=== PATIENT | female | born 1965 ===

== ENCOUNTER → 2017-04-27 | Outpatient (CLI) | payer MEDICARE, MEDICAID, SELFPAY | PROVIDERS: PCP Physician Assistant; Visit Provider Physician Assistant | DX: M54.12 Radiculopathy, cervical region (principal); V89.2XXS Person injured in unspecified motor-vehicle accident, traffic, sequela | CPT/HCPCS: 72141 ==

== ENCOUNTER → 2018-03-26 11:24 | Outpatient (CLI) | payer MEDICARE, MEDICAID, SELFPAY ==
--- NOTE | 2018-03-26 | DI.MG.S_ITS ---
BILATERAL DIGITAL SCREENING MAMMOGRAM 3D/2D WITH CAD: 03/26/2018 CLINICAL: Routine screening. Comparison is made to exams dated: 12/01/2016 mammogram, 05/09/2013 mammogram, and 05/02/2013 mammogram - [facility]. The tissue of both breasts is heterogeneously dense. This may lower the sensitivity of mammography. Current study was also evaluated with a Computer Aided Detection (CAD) system. No significant masses, calcifications, or other findings are seen in either breast. There has been no significant interval change. IMPRESSION: NEGATIVE There is no mammographic evidence of malignancy. A 1 year screening mammogram is recommended. This exam was interpreted at Station ID: [id number]. NOTE: For mammograms, a report in lay terms will be sent to the patient. Approximately 15% of breast malignancies will not be visualized mammographically. In the management of a palpable breast mass, a negative mammogram must not discourage biopsy of a clinically suspicious lesion. Electronically Signed By: Joyce cm/twan:03/26/2018 12:26:16 copy to: Mickie Babin letter sent: Normal Exam ACR BI-RADS Category 1: Negative [id number]
== END ==
PROVIDERS: PCP Physician Assistant; Visit Provider Physician Assistant
DX: Z12.31 Encounter for screening mammogram for malignant neoplasm of breast (principal)
CPT/HCPCS: 77063; 77067

== ENCOUNTER 2018-06-23 13:54 | Emergency (ER) | payer MEDICARE, MEDICAID, SELFPAY ==
[2018-06-23 13:57] VITALS: BP 155/90; PULSE 107; RESP 22; TEMP 36.4; O2SAT 100; BMI 22.8
[2018-06-23] MEDS: ONDANSETRON 4 MG/2 ML INJ IV (14:08)
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
--- NOTE | 2018-06-23 14:31 | DI.CT.S_ITS ---
PROCEDURE: CT ABDOMEN PELVIS W CON INDICATIONS: Nausea vomiting and with abdominal pain TECHNIQUE: After the administration of intravenous contrast, 5 mm thick sections acquired from the diaphragm to the symphysis. 5 mm coronal and sagittal reformats were acquired. For radiation dose reduction, the following was used: automated exposure control, adjustment of mA and/or kV according to patient size. COMPARISON: [facility], , PELVIC COMPLETE, 10/04/2017, 9:06. FINDINGS: Image quality: Excellent. ABDOMEN: Lung bases: Lung bases are clear. 7 mm subpleural nodule noted in the right lung base. Heart size is normal. Solid organs: Liver is normal in size and enhancement. Diffuse fatty infiltration of the liver. Gallbladder is within normal limits. Biliary system is non dilated. Pancreas enhances normally. Spleen is normal in size and enhancement. 6 mm cyst noted in the spleen. No adrenal nodules. Kidneys demonstrate normal size and enhancement, without hydronephrosis. The appendix is normal. Peritoneum and bowel: Bowel loops demonstrate normal wall thickness and caliber. No free fluid or air. Nodes and vessels: No retroperitoneal or mesenteric adenopathy by size criteria. Aorta and inferior vena cava are normal in size. Miscellaneous: No ventral hernias. PELVIS: Genitourinary: Bladder wall thickness is normal. 2.8 cm left adnexal cyst. 2.3 cm posterior right uterine fibroid. Prominence of the lower uterine segment and cervix with 2 cystic lesions measuring 2.4 2.3 cm in maximum diameter. Findings be related to large nabothian cysts versus necrotic neoplasm. Miscellaneous: No inguinal hernias or adenopathy. Bones: No suspicious bony lesions. No vertebral body compression fractures. Spine degenerative disease and facet arthropathy noted. Spine degenerative disease and facet arthropathy noted. IMPRESSION: 1. No acute disease process. 2. Hepatic steatosis. 3. The appendix is normal. 4. No dilated loops of bowel. 5. No free fluid or air. 6. Prominence of the lower uterine segment/cervix with associated cystic lesions. Findings may be related to large nabothian cysts versus carcinoma. Recommend correlation with pelvic exam. 7. Uterine fibroid not significantly changed compared to prior pelvic sonogram. 8. 2.8 cm left adnexal cyst. Dictated by: Mary Monreal MD, PhD on 06/23/2018 at 16:20 Approved by: Mary Monreal MD, PhD on 06/23/2018 at 16:28
[2018-06-23] MEDS: SODIUM CHLORIDE 0.9% 1,000 ML 1000 ML IV (14:40)
[2018-06-23] MEDS: HYDROMORPHONE 1 MG INJ IV (14:41)
[2018-06-23 14:53] LABS: Add Manual Diff / Slide Review NO; Eosinophils Percent Auto 0.2 % (2-4); Hematocrit 44.3 % (36-46); Hemoglobin 14.7 g/dL (12.0-16.0); Lymphocytes Percent Auto 18.8 % (25-40); Mean Corpuscular HGB Conc 33.3 % (30-36); Mean Corpuscular Hemoglobin 28.1 PG (26-34); Mean Corpuscular Volume 84.5 fL (80-100); Monocytes Percent Auto 5.6 % (3-14); Neutrophils Absolute Auto 8500 /uL (3000-5900); Neutrophils Percent Auto 74.4 % (50-75); Platelet Count 302 X10^3/uL (150-400); Red Blood Cell Count 5.24 X10^6/uL (4.0-5.2); Red Cell Distribution Width 13.4 % (11.6-14.8); White Blood Cell Count 11.4 X10^3/uL (4.5-11.0)
[2018-06-23 15:02] LABS: INR 1.1 (0.9-1.3); Prothrombin Time 12.1 SECONDS (10.1-12.7)
[2018-06-23 15:05] LABS: PTT Partial Thromboplastin Tim 28 SECONDS (26.4-36.2)
[2018-06-23 15:06] LABS: Alanine Aminotransferase 24 IU/L (9-52); Albumin 4.9 g/dL (3.5-5.0); Albumin Globulin Ratio 1.4 (1.0-2.8); Alkaline Phosphatase 67 U/L (38-126); Aspartate Aminotransferase 21 IU/L (14-36); BUN Creatinine Ratio 18.6 (6-22); Blood Urea Nitrogen 13 mg/dL (7-17); Calcium 9.5 mg/dL (8.4-10.2); Carbon Dioxide 22 mmol/L (22-32); Chloride 99 mmol/L (98-107); Estimated Glomerular Filt Rate > 60.0 mL/min (>60); Globulin 3.6 g/dL (1.7-4.1); Glucose 136 mg/dL (70-100); HEMOLYSIS < 15 (0-50); Lipase 108 U/L (23-300); Potassium 3.5 mmol/L (3.4-5.1); Sodium 138 mmol/L (137-145); Total Protein 8.5 g/dL (6.3-8.2)
[2018-06-23 16:24] VITALS: BP 134/73; PULSE 85; RESP 14; O2SAT 99
[2018-06-23 17:49] VITALS: BP 133/73; PULSE 99; RESP 16; O2SAT 100
[2018-06-23] MEDS: ONDANSETRON 4 MG ODT PREPACK 1 BOTTLE MISC (17:51)
== END 2018-06-23 17:57 | disposition home or self-care (01) ==
PROVIDERS: Emergency Provider Nurse Practitioner Family; Family Provider Physician Assistant; PCP Physician Assistant
DX: R11.2 Nausea with vomiting, unspecified (principal)
CPT/HCPCS: 36415; 74177; 80053; 81003; 83690; 85025; 85610; 85730; 96361; 96374; 96375; 99283; 99285; J1170; J2405; Q9967

== ENCOUNTER 2019-02-27 10:30 | Outpatient (RCR) | payer MEDICARE, MEDICAID, SELFPAY ==
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
== END 2019-02-28 09:05 | disposition home or self-care (01) ==
LOC: PHYS 10:30
PROVIDERS: Family Provider Internal Medicine; PCP Internal Medicine; Visit Provider Internal Medicine
DX: M25.511 Pain in right shoulder (principal); G56.21 Lesion of ulnar nerve, right upper limb; R53.1 Weakness; M25.611 Stiffness of right shoulder, not elsewhere classified; V89.2XXD Person injured in unspecified motor-vehicle accident, traffic, subsequent encounter
CPT/HCPCS: 97035; 97110; 97140

== ENCOUNTER → 2019-03-03 14:14 | Outpatient (CLI) | payer MEDICARE, MEDICAID, SELFPAY ==
[2019-03-06 19:55] LABS: ANA Pattern Speckled; ANA Screen, IFA Positive (Negative); ANA Titer 1:40 titer (<1:40)
== END ==
PROVIDERS: Family Provider Internal Medicine; PCP Internal Medicine; Visit Provider Physician Assistant
DX: R21 Rash and other nonspecific skin eruption (principal)
CPT/HCPCS: 36415; 86038

== ENCOUNTER 2019-06-24 10:57 | Emergency (ER) | payer MEDICARE, MEDICAID, OTHER, SELFPAY ==
[2019-06-24 11:06] VITALS: BP 149/81; PULSE 90; RESP 16; TEMP 36.5; O2SAT 100
--- NOTE | 2019-06-24 11:22 | ED.ABDPAIN ---
HPI - Abdominal Pain <JESSICA Alberts - Last Filed: 06/25/19 02:40> General Chief Complaint: Abdominal Pain Stated Complaint: allergic to cats Time Seen by Provider: 06/24/19 11:02 Source: patient Mode of arrival: ambulatory Limitations: no limitations History of Present Illness HPI narrative: This is a 54-year-old female, nonsmoker, who presents with a friend with chief complain of periumbilical abdominal pain for 4 days with nausea and vomiting for multiple times. She denies fever but endorses chills, feeling sweaty and weak. Patient reports pain increases with walking, movement, smelling food and pain improves with pudding steady pressure on to her abdomen. She was referred by her primary care physician, Dr. Valderrama for an evaluation. The patient states she has been taking ibuprofen 400 mg b.i.d. and gabapentin 300 mg b.i.d. for her chronic back pain. She has states has not been taking ibuprofen with food. She also mentions that she has been having allergy reaction such as swelling to eyes, runny nose, itchy eyes and has been taking Zyrtec with [id number] Pet allergy medication. She is known to have allergy to cat and she was visiting her daughter who is expecting a child and has a cat at home. The allergy symptoms has been controlled with the medications at this time and she denies chest pain, breathing difficulties, dizziness at this time. Patient denies urinary symptoms such as dysuria, frequency, hematuria, urgency. Her last bowel movement was couple of days ago and denies melena, blood in stool. She denies blood in emesis and it appears to be white and foamy. She denies history of gastric ulcer. LMP end of last month. Related Data Previous Rx's Medication Instructions Recorded cimetidine 400 mg PO BID #60 tab 03/13/17 montelukast [Singulair] 10 mg PO QDAY #30 tab 03/13/17 prednisone 10 mg PO PRN PRN #30 tab 03/13/17 hydrocodone-acetaminophen 1 tab PO Q6HP PRN #20 tab 05/01/17 norethindrone acetate 5 mg PO QDAY #30 tab 09/19/17 betamethasone dipropionate 0.05 % 1 applictn TOPICAL TID #45 gram 04/30/18 topical ointment ibuprofen 800 mg tablet 800 mg PO TIDP PRN #90 tab 04/30/18 ondansetron 4 mg PO TID PRN #10 tab 06/23/18 gabapentin 300 mg capsule 300 mg PO HS #30 cap 09/04/18 omeprazole 20 mg PO DAILY 14 Days cap 06/24/19 ondansetron 4 mg PO TID-QID PRN #10 tab 06/24/19 Allergies Allergy/AdvReac Type Severity Reaction Status Date / Time diphenhydramine Allergy Unknown Verified 06/23/18 14:00 [From BENADRYL] hydrocortisone Allergy Unknown Verified 06/23/18 14:00 [HYDROCORTISONE] Sulfa (Sulfonamide Allergy Unknown Verified 06/23/18 14:00 Antibiotics) [SULFA (SULFONAMIDE ANTIBIOTICS)] CALAMINE LOTION Allergy Mild Uncoded 01/30/18 11:51 Review of Systems <JESSICA Alberts - Last Filed: 06/25/19 02:40> Review of Systems Narrative: General: See HPI HEENT: Denies sinus pain, ear pain, sore throat, difficulty swallowing, dizziness. Respiratory: Denies dyspnea, cough, wheezing, hemoptysis, sputum. Cardiovascular: Denies chest pain, palpitations, orthopnea, edema. Gastrointestinal: See HPI : Denies dysuria, frequency, incontinence, hematuria, urinary retention. Musculoskeletal: Denies weakness, joint pain or bony pain. Skin: Denies rash, skin lesions, or other. Neurologic: Denies weakness, headache, numbness, change in speech, confusion, seizures, incoordination. Psychiatric: No concerning psychosocial issues. 12-point review of systems is negative except for those stated above. 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 Head: Normal cephalic, atraumatic. No scalp or temporal tenderness, palpable mass or rash. EYES: Pupils are equal, round, and reactive to light and accommodation. Extraocular muscles are intact bilaterally. There is no subconjunctival hemorrhage, exudate and sclera non-icteric. ENT: Bilateral auditory canals and tympanic membranes clear. Hearing grossly intact. Nose without bleeding, purulent discharge or deviation. Mucous membrane dry, no mucosal lesion. Throat without erythema, tonsillar hypertrophy or exudate. Uvula in midline, airway patent. Neck: Trachea in midline. No JVD, non-tender without lymphadenopathy. No masses or thyroid megaly. Supple, non-tender and no meningeal signs. CARDIAC: Normal regular rate and rhythm without murmurs, gallops, or rubs. No chest wall tenderness. No peripheral edema, cyanosis or pallor. Capillary refill is less than 2 seconds. RESPIRATORY: Lungs are cleat to auscultate bilaterally. No cough, wheezes, rales, or rhonchi. No stridor, respiratory distress, increase work of breathing, or accessary muscle used. ABD: Abdomen the diffused tenderness to palpate, guarding. Abdomen soft and non-distended. Bowel sounds are normal in all 4 quadrants. There is no palpable masses or organomegaly. EXT: Full painless ROM of all extremities with no loss of sensation, strength, effusion or edema. SKIN: Warm, dry, normal color for patient. No erythema, lesions or rash over visible areas. BACK: Nontender without deformity or crepitance. No flank tenderness. NEUROLOGICAL: Alert and oriented to place, time and person. Sensation and motor function intact bilaterally. No facial droops, dysphasia. PSYCHIATRIC: Good judgement and reason, without hallucinations, abnormal affect or abnormal behaviors during the examination. Initial Vital Signs Initial Vital Signs: Vital Signs Temperature 97.7 F 06/24/19 11:06 Pulse Rate 90 06/24/19 11:06 Respiratory Rate 16 06/24/19 11:06 Blood Pressure 149/81 H 06/24/19 11:06 Pulse Oximetry 100 06/24/19 11:06 <Toby Park DO - Last Filed: 07/02/19 18:48> Initial Vital Signs Initial Vital Signs: Vital Signs Temperature 97.7 F 06/24/19 11:06 Pulse Rate 90 06/24/19 11:06 Respiratory Rate 16 06/24/19 11:06 Blood Pressure 149/81 H 06/24/19 11:06 Pulse Oximetry 100 06/24/19 11:06 Scores <JESSICA Alberts - Last Filed: 06/25/19 02:40> GCS Carmen coma scale eye opening: Spontaneous Carmen coma scale verbal response: Orientated [place] coma scale motor response: Obey commands [place] coma scale total score: 15 Course <JESSICA Alberts - Last Filed: 06/25/19 02:40> Orders Ordered: Discontinued Medications Sodium Chloride (Normal Saline 0.9%) 1,000 mls @ 999 mls/hr IV BOLUS ONE Stop: 06/24/19 12:21 Last Infusion: 06/24/19 14:10 Dose: 0 mls/hr Documented by: Infusion: 06/24/19 13:38 Dose: 999 mls/hr Documented by: Infusion: 06/24/19 12:45 Dose: 0 mls/hr Documented by: Admin: 06/24/19 11:49 Dose: 999 mls/hr Documented by: EULALIO Morphine Sulfate (Morphine) 4 mg IV NOW ONE Stop: 06/24/19 13:43 Last Admin: 06/24/19 14:06 Dose: 4 mg Documented by: EULALIO Ondansetron HCl (Zofran) 4 mg IV NOW ONE Stop: 06/24/19 11:22 Last Admin: 06/24/19 11:52 Dose: 4 mg Documented by: EULALIO Ondansetron HCl (Zofran) 4 mg IV NOW ONE Stop: 06/24/19 14:11 Last Admin: 06/24/19 14:12 Dose: 4 mg Documented by: EULALIO Pantoprazole Sodium (Protonix) 40 mg IV NOW ONE Stop: 06/24/19 11:22 Last Admin: 06/24/19 11:51 Dose: 40 mg Documented by: EULALIO Vital Signs Vital signs: Vital Signs - 8 hr 06/24/19 11:06 Temperature 97.7 F Pulse Rate 90 Respiratory Rate 16 Blood Pressure 149/81 H Pulse Oximetry 100 <Toby Park DO - Last Filed: 07/02/19 18:48> Orders Ordered: Discontinued Medications Sodium Chloride (Normal Saline 0.9%) 1,000 mls @ 999 mls/hr IV BOLUS ONE Stop: 06/24/19 12:21 Last Infusion: 06/24/19 14:10 Dose: 0 mls/hr Documented by: Infusion: 06/24/19 13:38 Dose: 999 mls/hr Documented by: Infusion: 06/24/19 12:45 Dose: 0 mls/hr Documented by: Admin: 06/24/19 11:49 Dose: 999 mls/hr Documented by: EULALIO Morphine Sulfate (Morphine) 4 mg IV NOW ONE Stop: 06/24/19 13:43 Last Admin: 06/24/19 14:06 Dose: 4 mg Documented by: EULALIO Ondansetron HCl (Zofran) 4 mg IV NOW ONE Stop: 06/24/19 11:22 Last Admin: 06/24/19 11:52 Dose: 4 mg Documented by: EULALIO Ondansetron HCl (Zofran) 4 mg IV NOW ONE Stop: 06/24/19 14:11 Last Admin: 06/24/19 14:12 Dose: 4 mg Documented by: EULALIO Pantoprazole Sodium (Protonix) 40 mg IV NOW ONE Stop: 06/24/19 11:22 Last Admin: 06/24/19 11:51 Dose: 40 mg Documented by: EULALIO Vital Signs Vital signs: Vital Signs - 8 hr 06/24/19 11:06 Temperature 97.7 F Pulse Rate 90 Respiratory Rate 16 Blood Pressure 149/81 H Pulse Oximetry 100 MDM - Abdominal Pain <JESSICA Alberts - Last Filed: 06/25/19 02:40> Differential Diagnosis Differential diagnosis: Likely abdominal pain, acute appendicitis, pancreatitis and other (gastritis, cholecystitis) Medical Records Attestation: I reviewed the patient's medical records. Lab Data Attestation: I reviewed the patient's lab results. Result diagrams: 06/24/19 11:50 06/24/19 11:50 Labs: Lab Results 06/24/19 06/24/19 Range/Units 11:50 11:50 WBC 10.6 (4.5-11.0) X10^3/uL RBC 5.34 H (4.0-5.2) X10^6/uL Hgb 15.0 (12.0-16.0) g/dL Hct 44.6 (36-46) % MCV 83.4 (80-100) fL MCH 28.0 (26-34) PG MCHC 33.6 (30-36) % RDW 13.7 (11.6-14.8) % Plt Count 316 (150-400) X10^3/uL Neut % (Auto) 77.1 H (50-75) % Lymph % (Auto) 15.7 L (25-40) % [place] % (Auto) 6.0 (3-14) % Eos % (Auto) 0.4 L (2-4) % Baso % (Auto) 0.8 (0-2) % Neut # (Auto) 8200 H (8504-6451) /uL Lymph # (Auto) 1700 (0280-9548) /uL [place] # (Auto) 600 (0-900) /uL Eos # (Auto) 0 (0-450) /uL Baso # (Auto) 100 (0-100) /uL Sodium 135 L (137-145) mmol/L Potassium 3.5 (3.4-5.1) mmol/L Chloride 96 L (98-107) mmol/L Carbon Dioxide 23 (22-32) mmol/L BUN 17 (7-17) mg/dL Creatinine 0.70 (0.52-1.04) mg/dL Estimated GFR > 60.0 (>60) mL/min BUN/Creatinine Ratio 24.3 H (6-22) Glucose 126 H (70-100) mg/dL Calcium 10.0 (8.4-10.2) mg/dL Total Bilirubin 1.0 (0.2-1.3) mg/dL AST 27 (14-36) IU/L ALT 22 (9-52) IU/L Alkaline Phosphatase 76 (38-126) U/L Total Protein 9.0 H (6.3-8.2) g/dL Albumin 4.9 (3.5-5.0) g/dL Globulin 4.1 (1.7-4.1) g/dL Albumin/Globulin Ratio 1.2 (1.0-2.8) Lipase 46 (23-300) U/L Point of care testing: Urine Dip Bedside Urine Glucose Negative Bedside Urine Bilirubin - Negative Bedside Urine Ketone +++ 80 Urine Specific [place] 1.010 Bedside Urine Occult Blood - Negative Bedside Urine pH 8.0 Bedside Urine Protein +/- 15 Bedside Urine Urobilinogen - Negative Bedside Urine Nitrite - Negative Bedside Urine Leukocytes - Negative Esterase Imaging Data CT scan - abdomen: Radiologist's impression: [address] [address] [address] Scan Report Signed Patient: Amy Campos JMR#: [id number] : 1965Acct:[id number] Age/Sex: 54 / FDate of Service: 06/24/19 Loc: ED Accession Number: [id number] Procedure: CT abdomen pelvis w con Ordering Provider: Quincy Allison PROCEDURE: CT ABDOMEN PELVIS W CON INDICATIONS: periumbelical pain with nausea and vomiting TECHNIQUE: After the administration of intravenous contrast, 5 mm thick sections acquired from the diaphragm to the symphysis. 5 mm coronal and sagittal reformats were acquired. For radiation dose reduction, the following was used: automated exposure control, adjustment of mA and/or kV according to patient size. COMPARISON: [facility], US, US PELVIC COMPLETE WITH TRANSVAGINAL, 08/26/2018, 14:14. [facility], CT, CT ABDOMEN PELVIS W CON, 06/23/2018, 15:39. FINDINGS: Image quality: Excellent. ABDOMEN: Lung bases: Lung bases are clear. Heart size is normal. Solid organs: Liver is normal in size and enhancement. Gallbladder appears normal. Biliary system is non dilated. Pancreas enhances normally. Spleen is normal in size and enhancement. No adrenal nodules. Kidneys demonstrate normal size and enhancement, without hydronephrosis. Peritoneum and bowel: Bowel loops demonstrate normal wall thickness and caliber. No free fluid or air. Nodes and vessels: No retroperitoneal or mesenteric adenopathy by size criteria. Aorta and inferior vena cava are normal in size. Miscellaneous: No ventral hernias. PELVIS: Genitourinary: Bladder wall thickness is normal. Note is made of an anteverted uterus as was previously the case and there has been interval development of what appears to be either dystrophic calcification within a right fundal fibroid or development of hyper enhancement of that particular 2.6 cm mass. On the form layer view a calcified structure is not seen to right of midline at the pelvis, and therefore hyper enhancement is the most likely cause. Scattered nabothian cysts are noted at the cervix. Miscellaneous: No inguinal hernias or adenopathy. A normal or abnormal appendix could not be located but there is no secondary CT evidence of appendicitis. Bones: No suspicious bony lesions. No vertebral body compression fractures. IMPRESSION: 1. Source of periumbilical pain with nausea and vomiting, suspicious by clinical symptoms 4 presents of appendicitis, is not found. 2. The uterus appears anteverted and just to the right of midline there is an ovoid 2.6 cm high density structure that appears to represent a hyperenhancing fibroid. This structure can be seen on ultrasound scanning 08/26/18 and also on pelvic CT scan with contrast 06/23/18. Hyperenhancement during that study was not found but this may represent a slight difference in phase of contrast enhancement. The mass has not enlarged. Given the unusual intensity of contrast enhancement a followup ultrasound targeted to that particular finding is recommended to be obtained in 3 months to assess for cell changer time. Dictated by: Jairon Willson M.D. on 06/24/2019 at 13:51 Approved by: Jairon Willson M.D. on 06/24/2019 at 13:58 ECG Data Attestation: I personally reviewed and interpreted this ECG as follows: Prior ECG tracings: not available for review Interpretation: Sinus rhythm rate in 94 with marked sinus arrhythmia. Normal axis. No ST elevation or depression. MDM Narrative Medical decision making narrative: The patient has been referred from her primary care physician, Dr. Valderrama for and abdominal pain evaluation. Patient complain of periumbilical pain with nausea and multiple vomiting without blood since 4 days ago. Patient reports was taking ibuprofen 40o mg b.i.d. without food and as needed prednisone for her chronic back pain. Patient denies urinary symptoms, diarrhea, constipation, fever. She states was evaluated at emergency room in [facility] 2 nights ago with blood test without imaging test. Patient complain of tenderness to palpate on mid abdomen and left quadrant pain. There was no rebounding tenderness. She has been afebrile in ED. Her white count was normal but with mildly elevated neutrophils. The chemistry test shows mild the decreased sodium and chloride with normal lipase. CT scan of abdomen pelvis shows no acute appendicitis. Patient has 2.6 cm high density structure/fibroid just to the right of the midline in her ureterus which patient is known to have in the past without increase in size. It was recommended to be obtained ultrasound in 3 months in pelvic since the hyper enhancement during CT scan was noted. Patient was medicated with multiple medications and hydrated with IV normal saline. Patient reports pain has relieved along the nausea. She was able to tolerate ice chips prior DC to home. Return precautions were discussed with the patient. Considered discharge medication as Carafate versus omeprazole for possible gastritis discomfort. Patient reports unable to take large pills. Patient was discharged to home with omeprazole at this time for 2 week course and was advised to follow up with Dr. Valderrama for a re-evaluation. Patient agrees with treatment plan and no further questions were expressed at this time. <Toby Park, DO - Last Filed: 07/02/19 18:48> Lab Data Labs: Lab Results 06/24/19 06/24/19 Range/Units 11:50 11:50 WBC 10.6 (4.5-11.0) X10^3/uL RBC 5.34 H (4.0-5.2) X10^6/uL Hgb 15.0 (12.0-16.0) g/dL Hct 44.6 (36-46) % MCV 83.4 (80-100) fL MCH 28.0 (26-34) PG MCHC 33.6 (30-36) % RDW 13.7 (11.6-14.8) % Plt Count 316 (150-400) X10^3/uL Neut % (Auto) 77.1 H (50-75) % Lymph % (Auto) 15.7 L (25-40) % [place] % (Auto) 6.0 (3-14) % Eos % (Auto) 0.4 L (2-4) % Baso % (Auto) 0.8 (0-2) % Neut # (Auto) 8200 H (2794-5309) /uL Lymph # (Auto) 1700 (0813-7221) /uL [place] # (Auto) 600 (0-900) /uL Eos # (Auto) 0 (0-450) /uL Baso # (Auto) 100 (0-100) /uL Sodium 135 L (137-145) mmol/L Potassium 3.5 (3.4-5.1) mmol/L Chloride 96 L (98-107) mmol/L Carbon Dioxide 23 (22-32) mmol/L BUN 17 (7-17) mg/dL Creatinine 0.70 (0.52-1.04) mg/dL Estimated GFR > 60.0 (>60) mL/min BUN/Creatinine Ratio 24.3 H (6-22) Glucose 126 H (70-100) mg/dL Calcium 10.0 (8.4-10.2) mg/dL Total Bilirubin 1.0 (0.2-1.3) mg/dL AST 27 (14-36) IU/L ALT 22 (9-52) IU/L Alkaline Phosphatase 76 (38-126) U/L Total Protein 9.0 H (6.3-8.2) g/dL Albumin 4.9 (3.5-5.0) g/dL Globulin 4.1 (1.7-4.1) g/dL Albumin/Globulin Ratio 1.2 (1.0-2.8) Lipase 46 (23-300) U/L Point of care testing: Urine Dip Bedside Urine Glucose Negative Bedside Urine Bilirubin - Negative Bedside Urine Ketone +++ 80 Urine Specific [place] 1.010 Bedside Urine Occult Blood - Negative Bedside Urine pH 8.0 Bedside Urine Protein +/- 15 Bedside Urine Urobilinogen - Negative Bedside Urine Nitrite - Negative Bedside Urine Leukocytes - Negative Esterase Discharge Plan Departure Patient Disposition: Home Clinical Impression: Abdominal pain Qualifiers: Abdominal location: periumbilical Qualified Code(s): R10.33 - Periumbilical pain Gastritis Qualifiers: Gastritis type: unspecified gastritis Chronicity: acute Gastritis bleeding: presence of bleeding unspecified Qualified Code(s): K29.00 - Acute gastritis without bleeding Fibroid, uterine Qualifiers: Uterine leiomyoma location: unspecified location Qualified Code(s): D25.9 - Leiomyoma of uterus, unspecified Discharge Date/Time: 06/24/19 14:50 Activity Restrictions/Additional Instructions: You have been diagnosed with [abdominal pain, gastritis. The blood test and urine tests were unremarkable. CT scan showed uterine fundal fibroids that should be followed up in 3 months by ultrasound. You're medicated with pantoprazole, Zofran, and morphine for the discomfort which improved the pain. Please start with clear liquid diet and when you're able to tolerate this you could advance her diet to bland such as banana, toast, applesauce, crackers. Please try to avoid creamy, fatty, spicy, acidic fluid 5 at this time until your feeling better]. What to do: *Take your medications as directed. Please take omeprazole daily for stomach discomfort and Zofran as needed for nausea *Follow up with your primary care provider in 2-3 days, call for an appointment. Let them know you were seen in the ED and that we asked you to be seen in follow up. *Return to ED if you have any new, worsening, or concerning symptoms, such as [chest pain, breathing difficulty, unable to tolerate fluids, fever, increasing stomach pain or other acute concerns]. Prescriptions: New ondansetron 4 mg tablet,disintegrating 4 mg PO TID-QID PRN (Reason: nausea and vomiting) Qty: 10 RF: 0 omeprazole 20 mg capsule,delayed release(DR/EC) 20 mg PO DAILY 14 Days RF: 0 No Action cimetidine 400 MG tablet 400 mg PO BID Qty: 60 RF: 3 montelukast [Singulair] 10 MG tablet 10 mg PO QDAY Qty: 30 RF: 3 prednisone 10 MG tablet 10 mg PO PRN PRNQty: 30 RF: 1 hydrocodone-acetaminophen 5 MG/325 MG tablet 1 tab PO Q6HP PRNQty: 20 RF: 0 norethindrone acetate 5 MG tablet 5 mg PO QDAY Qty: 30 RF: 1 betamethasone dipropionate 0.05 % ointment 1 applictn Topical TID Qty: 45 RF: 0 ibuprofen 800 mg tablet 800 mg PO TIDP PRN (Reason: pain) Qty: 90 RF: 0 gabapentin [Neurontin] 300 mg capsule 300 mg PO HS Qty: 30 RF: 0 ondansetron 4 mg tablet,disintegrating 4 mg PO TID PRN (Reason: nausea and vomiting) Qty: 10 RF: 0 Referrals: León Valderrama MD [Primary Care Provider] - <Toby Park DO - Last Filed: 07/02/19 18:48> Sign Out Provider Sign Out Attestation: I was available for consultation during this patient's emergency department encounter
[2019-06-24] MEDS: SODIUM CHLORIDE 0.9% 1,000 ML 999 ML IV (11:49)
[2019-06-24] MEDS: PANTOPRAZOLE 40 MG VIAL IV (11:51)
[2019-06-24] MEDS: ONDANSETRON 4 MG/2 ML INJ IV ×2 (11:52→14:12)
[2019-06-24 11:57] LABS: Add Manual Diff / Slide Review NO; Basophils Absolute Auto 100 /uL (0-100); Basophils Percent Auto 0.8 % (0-2); Eosinophils Absolute Auto 0 /uL (0-450); Eosinophils Percent Auto 0.4 % (2-4); Hematocrit 44.6 % (36-46); Lymphocytes Absolute Auto 1700 /uL (1100-4500); Lymphocytes Percent Auto 15.7 % (25-40); Mean Corpuscular HGB Conc 33.6 % (30-36); Mean Corpuscular Volume 83.4 fL (80-100); Monocytes Absolute Auto 600 /uL (0-900); Neutrophils Absolute Auto 8200 /uL (1500-7000); Neutrophils Percent Auto 77.1 % (50-75); Platelet Count 316 X10^3/uL (150-400); Red Blood Cell Count 5.34 X10^6/uL (4.0-5.2); Red Cell Distribution Width 13.7 % (11.6-14.8); White Blood Cell Count 10.6 X10^3/uL (4.5-11.0)
[2019-06-24 12:09] LABS: Alanine Aminotransferase 22 IU/L (9-52); Albumin 4.9 g/dL (3.5-5.0); Albumin Globulin Ratio 1.2 (1.0-2.8); Alkaline Phosphatase 76 U/L (38-126); Aspartate Aminotransferase 27 IU/L (14-36); BUN Creatinine Ratio 24.3 (6-22); Blood Urea Nitrogen 17 mg/dL (7-17); Carbon Dioxide 23 mmol/L (22-32); Chloride 96 mmol/L (98-107); Estimated Glomerular Filt Rate > 60.0 mL/min (>60); Globulin 4.1 g/dL (1.7-4.1); Glucose 126 mg/dL (70-100); HEMOLYSIS < 15 (0-50); Lipase 46 U/L (23-300); Potassium 3.5 mmol/L (3.4-5.1); Sodium 135 mmol/L (137-145)
--- NOTE | 2019-06-24 12:43 | DI.CT.S_ITS ---
PROCEDURE: CT ABDOMEN PELVIS W CON INDICATIONS: periumbelical pain with nausea and vomiting TECHNIQUE: After the administration of intravenous contrast, 5 mm thick sections acquired from the diaphragm to the symphysis. 5 mm coronal and sagittal reformats were acquired. For radiation dose reduction, the following was used: automated exposure control, adjustment of mA and/or kV according to patient size. COMPARISON: [facility], US, US PELVIC COMPLETE WITH TRANSVAGINAL, 08/26/2018, 14:14. [facility], CT, CT ABDOMEN PELVIS W CON, 06/23/2018, 15:39. FINDINGS: Image quality: Excellent. ABDOMEN: Lung bases: Lung bases are clear. Heart size is normal. Solid organs: Liver is normal in size and enhancement. Gallbladder appears normal. Biliary system is non dilated. Pancreas enhances normally. Spleen is normal in size and enhancement. No adrenal nodules. Kidneys demonstrate normal size and enhancement, without hydronephrosis. Peritoneum and bowel: Bowel loops demonstrate normal wall thickness and caliber. No free fluid or air. Nodes and vessels: No retroperitoneal or mesenteric adenopathy by size criteria. Aorta and inferior vena cava are normal in size. Miscellaneous: No ventral hernias. PELVIS: Genitourinary: Bladder wall thickness is normal. Note is made of an anteverted uterus as was previously the case and there has been interval development of what appears to be either dystrophic calcification within a right fundal fibroid or development of hyper enhancement of that particular 2.6 cm mass. On the unit supervisor view a calcified structure is not seen to right of midline at the pelvis, and therefore hyper enhancement is the most likely cause. Scattered nabothian cysts are noted at the cervix. Miscellaneous: No inguinal hernias or adenopathy. A normal or abnormal appendix could not be located but there is no secondary CT evidence of appendicitis. Bones: No suspicious bony lesions. No vertebral body compression fractures. IMPRESSION: 1. Source of periumbilical pain with nausea and vomiting, suspicious by clinical symptoms 4 presents of appendicitis, is not found. 2. The uterus appears anteverted and just to the right of midline there is an ovoid 2.6 cm high density structure that appears to represent a hyperenhancing fibroid. This structure can be seen on ultrasound scanning 08/26/18 and also on pelvic CT scan with contrast 06/23/18. Hyperenhancement during that study was not found but this may represent a slight difference in phase of contrast enhancement. The mass has not enlarged. Given the unusual intensity of contrast enhancement a followup ultrasound targeted to that particular finding is recommended to be obtained in 3 months to assess for slip box changer time. Dictated by: Jairon Willson M.D. on 06/24/2019 at 13:51 Approved by: Jairon Willson M.D. on 06/24/2019 at 13:58
--- NOTE | 2019-06-24 13:31 | PC.NURSE ---
1330 pt requesting medication so i can sleep, [employer] RO[employer] ATTENDANT notified
[2019-06-24] MEDS: MORPHINE 4 MG/ML INJ IV (14:06)
[2019-06-24 14:50] VITALS: BP 170/75; PULSE 84; RESP 18; O2SAT 100
== END 2019-06-24 14:50 | disposition home or self-care (01) ==
PROVIDERS: Emergency Provider Nurse Practitioner Family; Family Provider Internal Medicine; PCP Internal Medicine
DX: K29.00 Acute gastritis without bleeding (principal); D25.9 Leiomyoma of uterus, unspecified
CPT/HCPCS: 36591; 74177; 80053; 81003; 83690; 85025; 93005; 96361; 96374; 96375; 96376; 99283; 99285; C9113; J2270; J2405; Q9967

== ENCOUNTER → 2019-09-30 08:18 | Outpatient (CLI) | payer MEDICARE, MEDICAID, OTHER, SELFPAY ==
--- NOTE | 2019-09-30 | DI.US.S_ITS ---
PROCEDURE: US EXTREMITY NONVASC UPPER LT INDICATIONS: SOFT TISSUE DISORDER, PAIN TECHNIQUE: Real-time scanning was performed of the left upper arm, with image documentation. COMPARISON: None. FINDINGS: No definite soft tissue mass or fluid collection seen. IMPRESSION: No definite soft tissue abnormality seen sonographically. Dictated by: Bobby LUA Interpreted: Stacey Beltran MD on 09/30/2019 at 11:57 Approved by: Stacey Beltran M.D. on 09/30/2019 at 15:47
== END ==
PROVIDERS: PCP Internal Medicine; Visit Provider Internal Medicine
DX: M79.9 Soft tissue disorder, unspecified (principal)
CPT/HCPCS: 76882

== ENCOUNTER → 2019-11-18 10:10 | Outpatient (CLI) | payer MEDICARE, MEDICAID, OTHER, SELFPAY ==
--- NOTE | 2019-11-18 | DI.RAD.S_ITS ---
PROCEDURE: XR PELVIS 1-2V INDICATIONS: SACROILIITIS TECHNIQUE: Single view(s) of the pelvis acquired. COMPARISON: [facility], , PELVIS WITH BILATERAL HIPS, 11/11/2014, 15:27. FINDINGS: Bones: No fractures or dislocations. No suspicious bony lesions. Mild bilateral hip degeneration. Lower lumbar spondylosis. Sacroiliac joints grossly unremarkable. Pubic symphysis degenerative sclerosis and spurring. Soft tissues: Visualized bowel gas pattern is normal. No suspicious soft tissue calcifications. IMPRESSION: Mild bilateral hip degeneration, no interval change since 11/11/14 No radiographic evidence of sacroiliac erosions, ankylosis. Dictated by: Seth Ogden M.D. on 11/18/2019 at 15:03 Approved by: Seth Ogden M.D. on 11/18/2019 at 15:04
== END ==
PROVIDERS: PCP Internal Medicine; Visit Provider Anesthesiology Pain Medicine
DX: M46.1 Sacroiliitis, not elsewhere classified (principal); M16.0 Bilateral primary osteoarthritis of hip; M47.816 Spondylosis without myelopathy or radiculopathy, lumbar region
CPT/HCPCS: 72170

== ENCOUNTER → 2019-12-20 09:40 | Outpatient (CLI) | payer OTHER, MEDICARE, MEDICAID, SELFPAY ==
--- NOTE | 2019-12-20 | DI.MRI.S_ITS ---
PROCEDURE: MR CERVICAL SPINE WO CON INDICATIONS: Cervicalgia TECHNIQUE: Noncontrast sagittal T1 spin echo and T2 fast spin echo, sagittal STIR, foraminal oblique sagittal T2 fast spin echo, and axial gradient echo or T2 fast spin echo through the cervical spine. COMPARISON: [facility], , C-SPINE WITHOUT CONTRAST, 04/27/2017, 7:24. FINDINGS: Image quality: Excellent. Alignment and Curvature: There is normal bony alignment. Bone Marrow: Marrow demonstrates normal overall signal. Spinal Cord: Visualized spinal cord has normal size and signal. No cerebellar tonsillar herniation. Paraspinous Soft Tissues: No paravertebral masses. Prevertebral soft tissues are normal in thickness. C2-C3: Mild posterior disc bulge versus osteophyte. No significant canal stenosis. No foraminal stenosis. C3-C4: Mild disc bulge. Mild canal stenosis. Mild left foraminal narrowing. C4-C5: Mild disc bulge. Moderate canal stenosis. Right uncovertebral joint hypertrophy with moderate right foraminal narrowing and flattening deformity on the exiting right C5 nerve root. C5-C6: Mild broad-based disc bulge. Mild canal stenosis. Right uncovertebral joint hypertrophy. Mild to moderate right foraminal narrowing and mild left foraminal narrowing. C6-C7: Mild disc bulge. Mild canal stenosis. Right facet hypertrophy. Mild bilateral foraminal narrowing. C7-T1: No canal stenosis or foraminal stenosis. IMPRESSION: 1. Multilevel canal stenosis is mild at C3-C4, moderate at C4-C5, mild at C5-C6, and mild at C6-C7. 2. Multilevel foraminal narrowing as described above, including moderate right foraminal narrowing at C4-C5. Dictated by: Tyrese Graham M.D. on 12/22/2019 at 9:24 Approved by: Tyrese Graham M.D. on 12/22/2019 at 9:33
== END ==
PROVIDERS: PCP Internal Medicine; Referring Provider Physical Medicine & Rehabilitation; Visit Provider Physical Medicine & Rehabilitation
DX: M54.2 Cervicalgia (principal); M48.02 Spinal stenosis, cervical region
CPT/HCPCS: 72141

== ENCOUNTER → 2020-05-24 13:20 | Outpatient (CLI) | payer MEDICARE, OTHER, MEDICAID, SELFPAY ==
[2020-05-24 14:29] LABS: Hemoglobin A1C% w Est Avg Glu 6.9 % (4.0-6.0)
== END ==
PROVIDERS: PCP Internal Medicine; Referring Provider Internal Medicine; Visit Provider Internal Medicine
DX: R73.9 Hyperglycemia, unspecified (principal)
CPT/HCPCS: 36415; 83036

== ENCOUNTER → 2020-06-04 10:05 | Outpatient (CLI) | payer MEDICARE, OTHER, MEDICAID, SELFPAY ==
[2020-06-04 12:07] LABS: Alanine Aminotransferase 43 IU/L (<35); Albumin 4.9 g/dL (3.5-5.0); Albumin Globulin Ratio 1.5 (1.0-2.8); Alkaline Phosphatase 73 U/L (38-126); Aspartate Aminotransferase 38 IU/L (14-36); BUN Creatinine Ratio 19.7 (6-22); Bilirubin Total 0.5 mg/dL (0.2-1.3); Blood Urea Nitrogen 14 mg/dL (7-17); Calcium 9.8 mg/dL (8.4-10.2); Carbon Dioxide 30 mmol/L (22-32); Chloride 101 mmol/L (98-107); Estimated Glomerular Filt Rate > 60.0 mL/min (>60); Globulin 3.3 g/dL (1.7-4.1); Glucose 128 mg/dL (70-100); HEMOLYSIS < 15 (0-50); Potassium 4.4 mmol/L (3.4-5.1); Sodium 138 mmol/L (137-145); Total Protein 8.2 g/dL (6.3-8.2)
[2020-06-04 13:28] LABS: Creatinine Urine Random 46.6 mg/dL
[2020-06-04 13:34] LABS: Microalbumi Creatinin Ratio Ur 12.8 ug/mg CR (<30); Microalbumin Urine Random < 0.6 mg/dL (0-1.6)
== END ==
PROVIDERS: PCP Registered Nurse; Referring Provider Registered Nurse; Visit Provider Registered Nurse
DX: E11.9 Type 2 diabetes mellitus without complications (principal)
CPT/HCPCS: 36415; 80053; 82043; 82570

== ENCOUNTER → 2020-08-03 10:38 | Outpatient (CLI) | payer MEDICARE, OTHER, MEDICAID, SELFPAY ==
--- NOTE | 2020-08-03 12:15 | DIET.PN ---
Diabetes Intake: Initial Assessment Assess: Ms. Campos is a 55 YOF referred for type 2 diabetes. She reports heavy bleeding for the last several days and believes she might be approaching menopause. 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 She currently does not have a glucometer, but feels she has been able to manage her BG with changes in her eating patterns. Labs: Per pt report: A1c: 6.9 Meds: metformin XR 500 mg qd; gabapentin Diet: per 24 hr recall: B: egg on bagel sandwich; pancake L: tacos (home or taco truck) D: bbq chicken, rice, spinach salad or potato salad; mikes hard lemonade/violeta Sn: nuts, celery, apple, naked juice Wt: 130lb Ht: 62.5in BMI: 23.3 BP: 148/84 DX: Altered nutrition related laboratory values related to impaired glucose metabolism, lack of previous exposure to nutrition information as evidenced by pt report, diagnosis of diabetes, previous diet high in refined carbohydrates. Intervention: 1. Completed intake assessment. Discussed barriers to care. 2. Discussed pathophysiology of diabetes. Reviewed A1c and its correlation to blood glucose numbers. Discussed recommended BG ranges. 3. Discussed importance of self-monitoring, how often, and when to check. 4. Reviewed hyper/hypoglycemia and treatment. 5. Reviewed safe disposal of equipment (strip/lancets/insulin needles). 6. Created SMART goals for pt self-care and success. 7. Discussed program curriculum outline and class needs based on individual goals. Monitor/Evaluate: Patient not interested in program at this time. Would like to manage on her own. Patient will contact when she feels necessary.
== END ==
PROVIDERS: PCP Registered Nurse; Referring Provider Registered Nurse; Visit Provider Registered Nurse
DX: E11.9 Type 2 diabetes mellitus without complications (principal); G57.82 Other specified mononeuropathies of left lower limb; Z71.3 Dietary counseling and surveillance; Z68.23 Body mass index [BMI] 23.0-23.9, adult; Z79.84 Long term (current) use of oral hypoglycemic drugs
CPT/HCPCS: G0108

== ENCOUNTER → 2021-01-14 10:00 | Outpatient (CLI) | payer OTHER, MEDICAID, SELFPAY ==
--- NOTE | 2021-01-14 10:07 | DI.MG.S_ITS ---
BILATERAL DIGITAL SCREENING MAMMOGRAM 3D/2D WITH CAD: 01/14/2021 CLINICAL: Routine screening. Comparison is made to exams dated: 03/26/2018 mammogram, 12/01/2016 mammogram, and 05/02/2013 mammogram - [facility]. The tissue of both breasts is heterogeneously dense. This may lower the sensitivity of mammography. Current study was also evaluated with a Computer Aided Detection (CAD) system. There are benign calcifications in the left breast. No significant masses, calcifications, or other findings are seen in either breast. There has been no significant interval change. IMPRESSION: BENIGN There is no mammographic evidence of malignancy. A 1 year screening mammogram is recommended. This exam was interpreted at Station ID: [id number]. NOTE: For mammograms, a report in lay terms will be sent to the patient. Approximately 15% of breast malignancies will not be visualized mammographically. In the management of a palpable breast mass, a negative mammogram must not discourage biopsy of a clinically suspicious lesion. Electronically Signed By: Tommie flanagan/twan:01/14/2021 10:43:55 copy to: Mickie Babin letter sent: Normal Exam ACR BI-RADS Category 2: Benign Finding(s) 3342F
== END ==
PROVIDERS: PCP Registered Nurse; Referring Provider Internal Medicine; Visit Provider Internal Medicine
DX: Z12.31 Encounter for screening mammogram for malignant neoplasm of breast (principal)
CPT/HCPCS: 77063; 77067

== ENCOUNTER → 2022-01-12 13:08 | Outpatient (CLI) | payer OTHER, MEDICAID, SELFPAY ==
--- NOTE | 2022-01-19 17:47 | DIAB.INIT ---
Initial Diabetes Education Assessment Name: Amy Campos Date: 01/12/22 Time: 130-230p Dx: Type II Diabetes Provider: Joao Carpio Learning Style: Listening, watching Amy presents today for initial DSME visit. Has h/o with previous [facility] in 07/2020. Reports +FH of DM with mother and sister (on insulin). Endorses LE injuries and UE left shoulder injury, which impact her physical activity per report. 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 Reports that she has been taking 250mg Metformin BID. states she cannot tolerate more than that, ie nausea. States she is unclear if she has PDM or DM. Reports she has switched to brown rice. Has reduced portions. Diet recall: 8a: oatmeal and betties with 1TBS oatmilk unsweetened, black coffee 10a: 2 corn tortillas with egg or beans ; 1/2 bagel with butter 12p: handful of snack mix: pretzels, nuts, breadsticks 3-4p: leftovers ; 1c pasta with meat and sauce and 4-5oz juice ; 1/2c B rice, veg, pro 8p: two cutie oranges, nuts or berries x 1/2c Beverages: 16-32oz water, coffee x 1-2c, 4-5oz juice Anthropometrics: Ht: 62 Wt: 135# reported Physical Activity: Limited by pain and injuries. Bike and resistance bands usually, but not currently. Plans to restart these exercises. History of 4-8 min on the bike stationary bike. Resistance band exercises every day. Stopped PT due to covid. So has been doing exercises at home. Self-Monitoring Blood Glucose: 2-4 x per day. Pre meal and after meal checking. 90-100 pre meal (within goal) 119-145 after meal (within goal) Wants to know what BG goals are and what to do and why if they are high. Wondering what to eat to prevent hyperglycemia Diabetes Medications: Metformin 250mg BID Pertinent Labs: Per [facility]: HgA1c-- Oct 2021: 8.1% ; April 2021: 6.4% Past Medical History: (Last Reviewed 08/30/20 @ 16:14 by JESSICA Leon) Chronic lower back pain Previous back surgery (~12/2010) Lower back left side Intervention: This participant was very receptive. Provided appropriate educational handouts. Discussed the following topics: Completed intake assessment. Discussed barriers to care. Pathophysiology of type 2 diabetes HgA1c difference between PDM and DM. Importance of self-monitoring, how often, and when to check. Suggested checking at different times to evaluate meals Plate Method, impact of macronutrients on blood sugar, meal timing, carbohydrate counting, pairing macronutrients and spreading out carbohydrates for better blood glucose management General recommended servings for carbohydrates at meals and snacks Role of physical activity and following provider guidelines for safety Created SMART goals for patient self-care and success. Goals: Bring BG next visit Avoid juice Have protein with carb snacks Reinstate safe physical activity Follow-up: BETINA IZQUIERDO follow-up in 1 month Steffanie Larry RDN, [facility] Certified Diabetes Care and Carpenters Supervisor P: [phone] Thank you for this referral
== END ==
PROVIDERS: Referring Provider Internal Medicine; Visit Provider Internal Medicine
DX: E11.9 Type 2 diabetes mellitus without complications (principal); Z79.84 Long term (current) use of oral hypoglycemic drugs
CPT/HCPCS: G0108

== ENCOUNTER → 2022-02-15 12:49 | Outpatient (CLI) | payer OTHER, MEDICAID, SELFPAY ==
--- NOTE | 2022-02-15 16:41 | DIAB.MNT ---
Initial Diabetes Medical Nutrition Therapy Assessment Name: Amy Campos Date: 02/15/22 Time: 11/05-p Dx: Type II Diabetes Provider: Joao Reyes presents for visit regarding T2DM. States she has been working on reducing carb intake. Endorses eating smaller portions. Incorporating more non-starchy veggies. Cut rice down and stopped eating potatoes. No longer drinking glass of juice with medications. Instead puts a few drops of juice in water. Cut rice down from two cups per serving down to 0.5-1c. Also reduced frequency of rice intake. Today she has questions about what yogurt to choose. Currently eating regular yogurt with moderate carb and lower protein intake. Endorses fear of covid vaccination today. States this impacts her social outings, but she reports feeling cautious due to h/o allergic rxns. Diet Recall: 8am: small portion oatmeal with blueberries 11-1130a: hot pocket with meat and vegetables ; bread with spinach and spam 230p: half banana 630p: chicken, broccoli, spinach ; 3oz pork chop, broccoli, spinach 0.5-1c brown dev with chx/fish/steak with green beans Anthropometrics: Ht: Wt: 130.5# reported Reported -5# since last visit, attributed to nutrition changes. Physical Activity: Has restarted using resistance bands. Stationary bike is broken, trying to find replacement piece. Trying to walk more in her home. Self-Monitoring Blood Glucose: No meter or log book today. Continues to check blood sugars. Reports a FBG today of 112mg/dL. Had toast this morning, 1 hr pc 113mg/dL. Most readings in goal. FBG 90s-130, one time 142 mg/dL since last visit. Reports a reading of 74 mg/dL prior to dinner last week, no symptoms of low. Skipped Metformin dose at that time. Diabetes Medications: Metformin 250mg BID Pertinent Labs: Per [facility]: HgA1c-- Oct 2021: 8.1% ; April 2021: 6.4% Past Medical History: (Last Reviewed 08/30/20 @ 16:14 by JESSICA Leon) Chronic lower back pain Previous back surgery (~12/2010) Lower back left side Nutrition Rx: Plate Method Nutrition Diagnosis: - Nutrition and food related knowledge deficit r/t limited MNT and knowledge around label reading aeb pt report - Inconsistent protein intake r/t nutrition knowledge deficit aeb diet recall and pt report Intervention: This participant was very receptive. Provided appropriate educational handouts. Discussed the following topics: Plate Method, impact of macronutrients on blood sugar, pairing macronutrients Heart health nutrition Role of physical activity and following provider guidelines for safety Label reading education Blood sugar goals and trends Discussed hypoglycemia s/s and plan Reviewed low risk of lows with current medication-- will re-evaluate when BG log is presented Created SMART goals for patient self-care and success. Goals: Bring BG next visit- in progress Avoid juice- met Have protein with carb snacks- in progress Reinstate safe physical activity- met Add nuts to breakfast oatmeal- new Follow-up: BETINA IZQUIERDO follow-up in 1 week for DSME 3 class series. 1:1 f/u to be scheduled after. Elda Reyes is motivated to learn and make changes for her DM care. States she looks forward to her new labs. Encouraged her to call to schedule appt for PCP appt. Likely due for new labs as well. Steffanie Larry RDN, [facility] Certified Diabetes Care and Immigration Judge P: [phone] Thank you for this referral
== END ==
PROVIDERS: Referring Provider Internal Medicine; Visit Provider Internal Medicine
DX: E11.9 Type 2 diabetes mellitus without complications (principal); Z79.84 Long term (current) use of oral hypoglycemic drugs; Z71.3 Dietary counseling and surveillance
CPT/HCPCS: 97802

== ENCOUNTER → 2022-02-21 09:30 | Outpatient (CLI) | payer OTHER, MEDICAID, SELFPAY ==
--- NOTE | 2022-02-21 17:55 | DIAB.FU ---
Diabetes Education Class Series: Diabetes and Nutrition Name: Amy Campos Date: 02/21/22 Time: 741p-0341o Amy reports she has been working on food choices and prep. Also looking to find different ways to exercise since her stationary bike needs repair. Class topics covered: ? Debunk nutrition myths and discuss how to sustain healthy eating long-term through moderation and variety ? Define macronutrients and determine their impact on blood sugars ? Discuss macronutrient pairing, Plate Method, and carb counting ? Review general recommendations for carbohydrates ? Practice label reading ? Discuss the role of fiber in diabetes and provide examples of sources ? Review heart health nutrition: fats, fiber, and sodium ? Determine recommendations for grocery shopping and eating out ? Discuss alcohol recommendations ? Review the role of substitute sugars in diabetes management ? Set SMART goals Goal Set: Try 2 new vegetables this month Follow-up: Diabetes Physiology and Medication Class in one week Steffanie Larry RDN, [facility] Certified Diabetes Care and Auto Locator P: [phone] Thank you for this referral
== END ==
PROVIDERS: Referring Provider Internal Medicine; Visit Provider Internal Medicine
DX: E11.9 Type 2 diabetes mellitus without complications (principal); Z71.3 Dietary counseling and surveillance
CPT/HCPCS: G0109

== ENCOUNTER → 2022-02-28 09:31 | Outpatient (CLI) | payer OTHER, MEDICAID, SELFPAY ==
--- NOTE | 2022-02-28 15:16 | DIAB.FU ---
Diabetes Education Class Series: Diabetes Physiology and Medications Name: Amy Campos Date: 02/28/22 Time: [id number] Amy reports she has been trying new vegetables since last visit. States she has recently completed a new HgA1c and has seen improvement. Continues with lifestyle changes. Aims to take special care of her feet, wears supportive footwear. Class topics covered: ? Diabetes pathophysiology ? Discuss different types of diabetes ? Review criteria for diagnosing diabetes ? Review HgA1c measurement and associated blood sugars ? Review blood sugar monitoring safety, technique, and goals ? Discuss ways to reduce complications associated with diabetes, includes microvascular and macrovascular complications ? Review diabetes medications types, action, and side effects ? Health care visits recommended for people with T2DM ? Immunization recommended for people with T2DM ? SMART goals review Follow-up: Diabetes Lifestyle and Ongoing Support Class next month. Amy is unable to make it to our class next week. Will complete class 3 next month and schedule 1:1 in between. Steffanie Larry RDN, [facility] [place] Registered Dietitian, Certified Diabetes Care and Electronics Technician Apprentice [phone] [email or web address]
== END ==
PROVIDERS: Referring Provider Internal Medicine; Visit Provider Internal Medicine
DX: E11.9 Type 2 diabetes mellitus without complications (principal); Z71.3 Dietary counseling and surveillance
CPT/HCPCS: G0109

== ENCOUNTER → 2022-04-11 09:35 | Outpatient (CLI) | payer OTHER, MEDICAID, SELFPAY ==
--- NOTE | 2022-04-12 17:27 | DIAB.FU ---
Diabetes Education Class Series: Diabetes Lifestyle Change and Ongoing Support Name: Amy Campos Date: 04/11/22 Time: [id number] Amy presents for final DSME class. States that she has been trying to incorporate different vegetables. Her most recent HgA1c was 6.5% great improvement and she is happy about it. Class topics covered: ? Discuss the difference between physical activity and exercise ? Determine physical activity benefits and impact on diabetes ? Review physical activity recommendations and safety ? Discuss emergency preparedness ? Discuss diabetes and emotions (diabetes burnout/distress) ? Review and practice stress management techniques ? Review support groups and community resources ? Discuss the role of family support in diabetes care ? What is going well? Challenges of diabetes? ? Set SMART goals Goal Set: try to increase exercise time Follow-up: BETINA IZQUIERDO follow-up 1:1 in 4-6 weeks Steffanie Larry RDN, [facility] Certified Diabetes Care and Die Maintenance Technician P: [phone] Thank you for this referral
== END ==
PROVIDERS: PCP Internal Medicine; Referring Provider Internal Medicine; Visit Provider Internal Medicine
DX: E11.9 Type 2 diabetes mellitus without complications (principal); Z71.3 Dietary counseling and surveillance
CPT/HCPCS: G0109

== ENCOUNTER 2023-01-29 14:31 | Emergency (ER) | payer OTHER, MEDICAID, SELFPAY ==
[2023-01-29] VITALS (15 sets, daily range): BP systolic 152–207; BP diastolic 85–96; PULSE 81–105; RESP 22; TEMP 36.4; O2SAT 94–100; BMI 21.4
[2023-01-29 15:27] LABS: Add Manual Diff / Slide Review NO; Basophils Absolute Auto 0 /uL (0-100); Basophils Percent Auto 0.8 % (0-2); Eosinophils Absolute Auto 0 /uL (0-450); Eosinophils Percent Auto 0.2 % (2-4); Hemoglobin 14.3 g/dL (12.0-16.0); Lymphocytes Absolute Auto 1500 /uL (1100-4500); Mean Corpuscular HGB Conc 33.3 % (30-36); Mean Corpuscular Hemoglobin 27.5 PG (26-34); Mean Corpuscular Volume 82.5 fL (80-100); Monocytes Absolute Auto 600 /uL (0-900); Neutrophils Absolute Auto 3400 /uL (1500-7000); Platelet Count 299 X10^3/uL (150-400); Red Blood Cell Count 5.21 X10^6/uL (4.0-5.2); Red Cell Distribution Width 13.2 % (11.6-14.8); White Blood Cell Count 5.6 X10^3/uL (4.5-11.0)
[2023-01-29] MEDS: SODIUM CHLORIDE 0.9% 1,000 ML 1000 ML IV ×2 (15:29→16:56)
[2023-01-29] MEDS: ONDANSETRON 4 MG/2 ML INJ IV (15:29)
[2023-01-29 15:40] LABS: Alanine Aminotransferase 36 IU/L (<35); Albumin 4.6 g/dL (3.5-5.0); Albumin Globulin Ratio 1.2 (1.0-2.8); Alkaline Phosphatase 66 U/L (38-126); Aspartate Aminotransferase 26 IU/L (14-36); BUN Creatinine Ratio 13.7 (6-22); Bilirubin Total 0.7 mg/dL (0.2-1.3); Blood Urea Nitrogen 10 mg/dL (7-17); Carbon Dioxide 28 mmol/L (22-32); Chloride 94 mmol/L (98-107); Estimated Glomerular Filt Rate > 60 mL/min (>60); Globulin 3.8 g/dL (1.7-4.1); Glucose 160 mg/dL (70-100); HEMOLYSIS < 15 (0-50); Lipase 30 U/L (23-300); Potassium 3.5 mmol/L (3.4-5.1); Sodium 134 mmol/L (137-145); Total Protein 8.4 g/dL (6.3-8.2)
--- NOTE | 2023-01-29 15:44 | ED.NAVMDI ---
HPI - Nausea/Vomiting/Diarrhea General Chief complaint: Upper Respiratory Symptoms Stated complaint: flu like sym. throwing up x3 Time Seen by Provider: 01/29/23 15:17 Source: patient Mode of arrival: Family Vehicle History of Present Illness HPI Narrative: 58-year-old female nonsmoker with history of chronic back pain, elevated blood pressure without diagnosis of hypertension and type 2 diabetes presents with her significant other and the chief complaint of nausea and vomiting on multiple occasions since Sunday. She has been unable to keep food and drink down and also her medications including gabapentin. She is developing some mild abdominal pain that seems to be worse with subsequent episodes of vomiting. She denies any fever or chills. Her had GI symptoms a few days ago as well. She denies recent travel, exposure to bad food or recent antibiotics. Related Data Previous Rx's Medication Instructions Recorded hydrocodone 5 mg-acetaminophen 325 1 tab PO Q6HP PRN #20 tabs 05/01/17 mg tablet ibuprofen 800 mg tablet 800 mg PO TIDP PRN pain #90 tabs 04/30/18 gabapentin 300 mg capsule 300 mg PO HS #30 caps 09/04/18 (Neurontin) blood sugar diagnostic (Blood #100 ea 08/23/20 Glucose Test strips) blood-glucose meter (Blood Glucose #1 ea 08/23/20 Monitoring kit) lancets 33 gauge (Glucocom Lancets) #100 ea 08/23/20 metoclopramide HCl 10 mg tablet 10 mg PO Q6H PRN nausea and 01/29/23 vomiting #20 tabs ondansetron 4 mg disintegrating 4 mg PO TID-QID PRN nausea and 01/29/23 tablet vomiting #10 tabs pantoprazole 40 mg tablet,delayed 40 mg PO DAILY #30 tabs 01/29/23 release (Protonix) Allergies Allergy/AdvReac Type Severity Reaction Status Date / Time diphenhydramine Allergy Unknown Verified 01/29/23 14:51 [From BENADRYL] hydrocortisone Allergy Unknown Verified 01/29/23 14:51 [HYDROCORTISONE] Sulfa (Sulfonamide Allergy Unknown Verified 01/29/23 14:51 Antibiotics) [SULFA (SULFONAMIDE ANTIBIOTICS)] CALAMINE LOTION Allergy Mild Uncoded 01/29/23 14:51 Review of Systems Review of Systems Narrative: GENERAL: See HPI HEENT: Denies sinus pain, ear pain, sore throat, difficulty swallowing, dizziness. RESPIRATORY: Denies dyspnea, cough, wheezing, hemoptysis, sputum. CARDIOVASCULAR: Denies chest pain, palpitations, orthopnea, edema, GASTROINTESTINAL: See HPI : Denies dysuria, frequency, incontinence, hematuria, urinary retention. MUSCULOSKELETAL: denies weakness, joint pain, or bony pain SKIN: Denies rash, skin lesions, or other NEUROLOGIC: Denies weakness, headache, numbness, change in speech, confusion, seizures, incoordination. PSYCHIATRIC: No concerning psychosocial issues. 12 point review of systems is negative except for those stated above Patient History Medical History Chronic lower back pain Surgical History Anesthesia Previous back surgery (~12/2010) Social History Smoking Status: Never smoker Type(s) of exercise: bicycling Smoking Status: Never smoker alcohol intake frequency: 0-2 drinks per day Substance Use Type: marijuana Exam Narrative Exam Narrative: GENERAL: [58] year old patient appears stated age. Well-developed patient, in mild distress. HEAD: Atraumatic. Normocephalic. EYES: Pupils equal round and reactive. Extraocular motions intact. No scleral icterus. No injection or drainage. ENT: Nose without bleeding, purulent drainage. Throat without erythema, tonsillar hypertrophy or exudate. Airway patent. NECK: Trachea midline. Non tender CARDIOVASCULAR: Regular rate and rhythm without murmurs, gallops, or rubs. RESPIRATORY: Clear to auscultation. Breath sounds equal bilaterally. No wheezes, rales, or rhonchi. GASTROINTESTINAL: Abdomen soft, non-tender, nondistended. EXTREMITIES: No edema or joint tenderness. BACK: Nontender without deformity or crepitance. No flank tenderness. NEURO: AOx3. SKIN: No rash or erythema of visible areas Initial Vital Signs Initial Vital Signs: Vital Signs Temperature 97.6 F 01/29/23 14:46 Pulse Rate 105 H 01/29/23 14:46 Respiratory Rate 22 01/29/23 14:46 Blood Pressure 152/96 H 01/29/23 14:46 Pulse Oximetry 100 01/29/23 14:46 Oxygen Delivery Method Room Air 01/29/23 14:46 Course Orders Ordered: Discontinued Medications Sodium Chloride (Normal Saline 0.9%) 1,000 mls @ 1,000 mls/hr IV BOLUS ONE Stop: 01/29/23 15:51 Last Infusion: 01/29/23 16:57 Dose: 0 mls/hr Documented By: Admin: 01/29/23 15:29 Dose: 1,000 mls/hr Documented By: DEACON Sodium Chloride (Normal Saline 0.9%) 1,000 mls @ 1,000 mls/hr IV BOLUS ONE Stop: 01/29/23 17:39 Last Admin: 01/29/23 16:56 Dose: 1,000 mls/hr Documented By: RICHY Metoclopramide HCl (Metoclopramide 10 Mg/2 Ml Inj) 10 mg IV NOW ONE Stop: 01/29/23 16:41 Last Admin: 01/29/23 16:56 Dose: 10 mg Documented By: RICHY Ondansetron HCl (Ondansetron 4 Mg Odt) 4 mg PO NOW PRN PRN Reason: Nausea And Vomiting Ondansetron HCl (Ondansetron 4 Mg/2 Ml Inj) 4 mg IV NOW PRN PRN Reason: Nausea And Vomiting Last Admin: 01/29/23 15:29 Dose: 4 mg Documented By: DEACON Pantoprazole Sodium (Pantoprazole 40 Mg Vial) 40 mg IV NOW ONE Stop: 01/29/23 15:38 Last Admin: 01/29/23 15:50 Dose: 40 mg Documented By: RICHY Reevaluation(s) Reevaluation #1: patient feeling much improvement after above stated therapies, keeping fluids down Vital Signs Vital signs: Vital Signs - 8 hr 01/29/23 14:46 01/29/23 15:19 01/29/23 15:19 Temperature 97.6 F Pulse Rate 105 H 83 Respiratory Rate 22 Blood Pressure 152/96 H 189/90 H Pulse Oximetry 100 100 Oxygen Delivery Method Room Air MDM - Nausea/Vomiting/Diarrhea Lab Data 01/29/23 15:20 01/29/23 15:20 Labs: Lab Results 01/29/23 01/29/23 01/29/23 Range/Units 14:58 15:20 15:20 WBC 5.6 (4.5-11.0) X10^3/uL RBC 5.21 H (4.0-5.2) X10^6/uL Hgb 14.3 (12.0-16.0) g/dL Hct 43.0 (36-46) % MCV 82.5 (80-100) fL MCH 27.5 (26-34) PG MCHC 33.3 (30-36) % RDW 13.2 (11.6-14.8) % Plt Count 299 (150-400) X10^3/uL Neut % (Auto) 61.0 (50-75) % Lymph % (Auto) 27.0 (25-40) % [place] % (Auto) 11.0 (3-14) % Eos % (Auto) 0.2 L (2-4) % Baso % (Auto) 0.8 (0-2) % Neut # (Auto) 3400 (9914-7867) /uL Lymph # (Auto) 1500 (8961-8353) /uL [place] # (Auto) 600 (0-900) /uL Eos # (Auto) 0 (0-450) /uL Baso # (Auto) 0 (0-100) /uL Sodium 134 L (137-145) mmol/L Potassium 3.5 (3.4-5.1) mmol/L Chloride 94 L (98-107) mmol/L Carbon Dioxide 28 (22-32) mmol/L BUN 10 (7-17) mg/dL Creatinine 0.73 (0.52-1.04) mg/dL Estimated GFR > 60 (>60) mL/min BUN/Creatinine Ratio 13.7 (6-22) Glucose 160 H (70-100) mg/dL Calcium 9.0 (8.4-10.2) mg/dL Total Bilirubin 0.7 (0.2-1.3) mg/dL AST 26 (14-36) IU/L ALT 36 H (<35) IU/L Alkaline Phosphatase 66 (38-126) U/L Total Protein 8.4 H (6.3-8.2) g/dL Albumin 4.6 (3.5-5.0) g/dL Globulin 3.8 (1.7-4.1) g/dL Albumin/Globulin Ratio 1.2 (1.0-2.8) Lipase 30 (23-300) U/L SARS-CoV-2 (PCR) Negative (Negative) Influenza A (RT-PCR) Flu a negative (NEGATIVE) Influenza B (RT-PCR) Flu b negative (NEGATIVE) RSV (PCR) Negative (Negative) Urine Dip Bedside Urine Glucose Negative Bedside Urine Bilirubin - Negative Bedside Urine Ketone - Negative Urine Specific [place] 1.010 Bedside Urine Occult Blood - Negative Bedside Urine pH 6.5 Bedside Urine Protein - Negative Bedside Urine Urobilinogen - Negative Bedside Urine Nitrite - Negative Bedside Urine Leukocytes - Negative Esterase MDM Narrative Medical decision making narrative: [58] year old patient presents with nausea and vomiting Multiple etiologies for patient's symptoms considered including, but not limited to: [Gastritis, gastroenteritis, viral illness, bowel obstruction versus other] Prior Charts reviewed in our EMR Primary Historian: patient Labs reviewed and interpreted by myself: No significant abnormalities requiring specific intervention Tx: Saline, zofran, Protonix, Reglan Patient's symptoms improved over duration of stay with above-stated therapies. Tolerating orals, ambulating in the department, no pain Findings and discharge diagnosis discussed with patient/family followed by verbalization of understanding Return precautions discussed with patient/family whom verbalize understanding of diagnosis and plan Discharge Plan Departure Patient Disposition: Home Clinical Impression: Vomiting Instructions: DI for Vomiting -- Adult Activity Restrictions/Additional Instructions: *You have been diagnosed with [nausea and vomiting] * As we discussed your history and physical exam as well as labs and imaging are very reassuring. There is no evidence of any severe diagnoses that would require a specific or immediate intervention. *What to do: *Please continue to take your regular medications as directed. [x ] New medication prescriptions sent to your pharmacy: [[facility] ] *Please follow up with your primary care provider in 2-3 days, call for an appointment. Let them know you were seen in the Emergency Department and that we ask that you be seen in follow up. We will electronically transmit a record of today's note if your PCP is in our system *Please consider a clear liquid diet for the next 24-48 hours and then slowly advance to regular as tolerated. Also, try to avoid alcohol, nicotine, caffeine, spicy, acidic or fatty foods as this may worsen your symptoms *If you do not have a primary care provider please contact the [facility] Resource line at [phone]. They will ask some questions about your medical history and help get you set up with a doctor in the community. *Return to Emergency Department if you should have any new, worsening or concerning symptoms, such as [fever greater than 101 F, shaking chills, worsening pain, persistent vomiting or other bothersome symptoms] Prescriptions: New ondansetron 4 mg tablet,disintegrating 4 mg PO TID-QID PRN (Reason: nausea and vomiting) Qty: 10 0RF metoclopramide HCl 10 mg tablet 10 mg PO Q6H PRN (Reason: nausea and vomiting) Qty: 20 0RF pantoprazole [Protonix] 40 mg tablet,delayed release (DR/EC) 40 mg PO DAILY Qty: 30 0RF No Action hydrocodone-acetaminophen 5 MG/325 MG tablet 1 tab PO Q6HP PRNQty: 20 0RF ibuprofen 800 mg tablet 800 mg PO TIDP PRN (Reason: pain) Qty: 90 0RF gabapentin [Neurontin] 300 mg capsule 300 mg PO HS Qty: 30 0RF (DME) blood-glucose meter [Blood Glucose Monitoring] Kit See Rx Instructions .ROUTE .MEDSUPPLY Qty: 1 0RF Rx Instructions: As directed (DME) Blood Glucose Test Strip See Rx Instructions .ROUTE .MEDSUPPLY Qty: 100 0RF Rx Instructions: Once daily testing (DME) lancets [Glucocom Lancets] 33 gauge misc See Rx Instructions .ROUTE .MEDSUPPLY Qty: 100 0RF Rx Instructions: Once daily glucose check Referrals: Darin Lipscomb MD [Primary Care Provider] - Stand Alone Forms: Patient Portal/API
[2023-01-29 15:46] LABS: Influenza A - CEPHEID Flu A NEGATIVE (NEGATIVE); Influenza B - CEPHEID Flu B NEGATIVE (NEGATIVE); Respiratory Syncytial Virus Negative (Negative)
[2023-01-29] MEDS: PANTOPRAZOLE 40 MG VIAL IV (15:50)
--- NOTE | 2023-01-29 16:35 | PC.NURSE ---
Pt attempted to drink water and had small amount of liquid vomit, Dr. Gatica notified and new orders received.
[2023-01-29 16:38] LABS: COVID-19 CEPHEID 4-PLEX PCR Negative (Negative)
[2023-01-29] MEDS: METOCLOPRAMIDE 10 MG/2 ML INJ IV (16:56)
--- NOTE | 2023-01-29 18:58 | PC.NURSE ---
Addendum entered by Sushila Salmon R.N. 01/29/23 19:00: Pt reports improvement in overall symptoms since last administration of medications. Original Note: Pt attempted to drink gingerale, states it hurt her abdomen and per instruction stopped, denies vomiting. Encouraged pt to return to water sips for oral challenge, pt took sips and verbalizes understanding.
== END 2023-01-29 19:32 | disposition home or self-care (01) ==
PROVIDERS: Emergency Provider Emergency Medicine; PCP Internal Medicine
DX: R11.2 Nausea with vomiting, unspecified (principal); Z20.822 Contact with and (suspected) exposure to COVID-19
CPT/HCPCS: 0241U; 36415; 80053; 81003; 83690; 85025; 96361; 96374; 96375; 99284; C9113; J2405; J2765

== ENCOUNTER → 2023-03-06 13:57 | Outpatient (CLI) | payer OTHER, MEDICAID, SELFPAY ==
--- NOTE | 2023-03-06 | DI.MG.S_ITS ---
BILATERAL DIGITAL SCREENING MAMMOGRAM 3D/2D WITH CAD: 03/06/2023 CLINICAL: Routine screening. Comparison is made to exams dated: 01/14/2021 mammogram, 03/26/2018 mammogram, and 12/01/2016 mammogram - [facility]. There are scattered areas of fibroglandular density in both breasts (category b / 25%-50% glandular tissue). Current study was also evaluated with a Computer Aided Detection (CAD) system. No significant masses, calcifications, or other findings are seen in either breast. There has been no significant interval change. IMPRESSION: NEGATIVE There is no mammographic evidence of malignancy. A 1 year screening mammogram is recommended. Based on the Tyrer Cuzick model (a risk assessment model) the patient's lifetime risk is 6.9% and her 10 year risk is 2.4%. According to the ACR, ACS, and NCCN guidelines, an annual breast MRI exam along with mammogram is recommended if the patient's lifetime risk is 20% or greater. This exam was interpreted at Station ID: [id number]. NOTE: For mammograms, a report in lay terms will be sent to the patient. Approximately 15% of breast malignancies will not be visualized mammographically. In the management of a palpable breast mass, a negative mammogram must not discourage biopsy of a clinically suspicious lesion. Electronically Signed By: Bibiana bailey/twan:03/06/2023 16:49:08 copy to: Mickie Babin letter sent: Normal Exam ACR BI-RADS Category 1: Negative [id number]
== END ==
PROVIDERS: PCP Internal Medicine; Referring Provider Internal Medicine; Visit Provider Internal Medicine
DX: Z12.31 Encounter for screening mammogram for malignant neoplasm of breast (principal)
CPT/HCPCS: 77063; 77067

== ENCOUNTER 2023-05-15 14:03 | Emergency (ER) | payer OTHER, MEDICAID, SELFPAY ==
[2023-05-15 14:36] VITALS: BP 170/77; PULSE 78; RESP 18; TEMP 36.4; O2SAT 100; BMI 22.6
--- NOTE | 2023-05-15 14:42 | DI.RAD.S_ITS ---
PROCEDURE: XR FOREARM RT 2V INDICATIONS: fall/pain TECHNIQUE: 2 views of the forearm were acquired. COMPARISON: None. FINDINGS: Bones: No fractures or dislocations. No suspicious bony lesions. Soft tissues: No suspicious soft tissue calcifications or masses. IMPRESSION: No fracture. No osseous lesion. If symptoms and/or clinical suspicion for pathology persists, further assessment with repeat radiographs (7-10 days) or advanced imaging (e.g. CT, MRI or bone scan) should be considered. Dictated by: Mary Monreal MD, PhD on 05/15/2023 at 15:18 Approved by: Mary Monreal MD, PhD on 05/15/2023 at 15:18
--- NOTE | 2023-05-15 14:42 | DI.RAD.S_ITS ---
PROCEDURE: XR TOE RT MIN 2V INDICATIONS: fall/pain TECHNIQUE: 3 views of the right 1st toe(s) acquired. COMPARISON: None. FINDINGS: Bones: Minimally displaced fracture involving the base of the 1st distal phalange which extends into the DIP joint. Soft tissues: No suspicious soft tissue densities. IMPRESSION: Minimally displaced, intra-articular 1st distal phalange fracture Dictated by: Mary Monreal MD, PhD on 05/15/2023 at 15:19 Approved by: Mary Monreal MD, PhD on 05/15/2023 at 15:20
--- NOTE | 2023-05-15 14:42 | DI.RAD.S_ITS ---
PROCEDURE: XR SHOULDER RT MIN 2V INDICATIONS: fall/pain TECHNIQUE: 3 views of the shoulder were acquired. COMPARISON: None. FINDINGS: Bones: No fractures or dislocations. No suspicious bony lesions. Visualized ribs appear intact. Soft tissues: No suspicious soft tissue calcifications. IMPRESSION: No fracture. No acute osseous lesion. If symptoms and/or clinical suspicion for pathology persists, further assessment with repeat radiographs (7-10 days) or advanced imaging (e.g. CT, MRI or bone scan) should be considered. Dictated by: Mary Monreal MD, PhD on 05/15/2023 at 15:19 Approved by: Mary Monreal MD, PhD on 05/15/2023 at 15:19
[2023-05-15 17:28] VITALS: BP 174/74; PULSE 81; O2SAT 100
--- NOTE | 2023-05-15 18:05 | ED_ITS ---
HPI - Fall General Chief Complaint: Fall Stated Complaint: fell down a flight of steps Time Seen by Provider: 05/15/23 18:03 Source: patient Mode of arrival: Wheelchair History of Present Illness HPI Narrative: 58-year-old female with history of hypertension and diabetes presents for evaluation of injury suffered as a consequence of a fall. She states she was walking in her foot got caught up and she tumbled down a few stairs and injured her shoulder and big toe on her right foot. She did hit her head lightly but did not lose consciousness. She has full recall of the event. She has had no nausea or no vomiting. She denies blurred vision or trouble with speech. She denies prodromal symptoms such as chest pain or shortness of breath. She does not take blood thinners. She has some pain in her right shoulder but full range of motion and denies numbness or tingling. She has pain in her right great toe that is worse with ambulation and improves with rest. Related Data Previous Rx's Medication Instructions Recorded hydrocodone 5 mg-acetaminophen 325 1 tab PO Q6HP PRN #20 tabs 05/01/17 mg tablet ibuprofen 800 mg tablet 800 mg PO TIDP PRN pain #90 tabs 04/30/18 gabapentin 300 mg capsule 300 mg PO HS #30 caps 09/04/18 (Neurontin) blood sugar diagnostic (Blood #100 ea 08/23/20 Glucose Test strips) blood-glucose meter (Blood Glucose #1 ea 08/23/20 Monitoring kit) lancets 33 gauge (Glucocom Lancets) #100 ea 08/23/20 metoclopramide HCl 10 mg tablet 10 mg PO Q6H PRN nausea and 01/29/23 vomiting #20 tabs ondansetron 4 mg disintegrating 4 mg PO TID-QID PRN nausea and 01/29/23 tablet vomiting #10 tabs pantoprazole 40 mg tablet,delayed 40 mg PO DAILY #30 tabs 01/29/23 release (Protonix) Allergies Allergy/AdvReac Type Severity Reaction Status Date / Time diphenhydramine Allergy Unknown Verified 01/29/23 14:51 [From BENADRYL] hydrocortisone Allergy Unknown Verified 01/29/23 14:51 [HYDROCORTISONE] Sulfa (Sulfonamide Allergy Unknown Verified 01/29/23 14:51 Antibiotics) [SULFA (SULFONAMIDE ANTIBIOTICS)] CALAMINE LOTION Allergy Mild Uncoded 01/29/23 14:51 Review of Systems Review of Systems Narrative: GENERAL: Denies chills, fatigue, malaise, fever, sweats. HEENT: Denies sinus pain, ear pain, sore throat, difficulty swallowing, dizziness. RESPIRATORY: Denies dyspnea, cough, wheezing, hemoptysis, sputum. CARDIOVASCULAR: Denies chest pain, palpitations, orthopnea, edema, GASTROINTESTINAL: Denies nausea, vomiting, abdominal pain, diarrhea, constipation, melena. : Denies dysuria, frequency, incontinence, hematuria, urinary retention. MUSCULOSKELETAL: See HPI SKIN: Denies rash, skin lesions, or other NEUROLOGIC: Denies weakness, headache, numbness, change in speech, confusion, seizures, incoordination. PSYCHIATRIC: No concerning psychosocial issues. 12 point review of systems is negative except for those stated above Patient History Medical History Chronic lower back pain Surgical History Anesthesia Previous back surgery (~12/2010) Social History Smoking Status: Never smoker Type(s) of exercise: bicycling Smoking Status: Never smoker alcohol intake frequency: 0-2 drinks per day Substance Use Type: marijuana Exam Narrative Exam Narrative: GENERAL: [58] year old patient appears stated age. Well-developed patient, in mild distress. GCS 15 HEAD: Small contusion on left occiput, no abrasion or laceration. No evidence of depressed skull fracture EYES: Pupils equal round and reactive. No hyphema Extraocular motions intact. No scleral icterus. No injection or drainage. ENT: Nose without bleeding, purulent drainage. No nasal septal hematoma or hemotympanum Throat without erythema, tonsillar hypertrophy or exudate. Airway patent. NECK: Trachea midline. Non tender, no midline tenderness, step-offs or crepitance CARDIOVASCULAR: Regular rate and rhythm without murmurs, gallops, or rubs. RESPIRATORY: Clear to auscultation. Breath sounds equal bilaterally. No wheezes, rales, or rhonchi. GASTROINTESTINAL: Abdomen soft, non-tender, nondistended. EXTREMITIES: Right shoulder with full but painful range of motion, no deformity. Right forearm with small contusion, no deformity, closed and neurovascularly intact. Right great toe tender to palpate, closed and isolated. BACK: Nontender without deformity or crepitance. No flank tenderness. NEURO: AOx3. SKIN: No rash or erythema of visible areas Initial Vital Signs Initial Vital Signs: Vital Signs Temperature 97.6 F 05/15/23 14:36 Pulse Rate 78 05/15/23 14:36 Respiratory Rate 18 05/15/23 14:36 Blood Pressure 170/77 H 05/15/23 14:36 Pulse Oximetry 100 05/15/23 14:36 Oxygen Delivery Method Room Air 05/15/23 14:36 Procedures Orthopedic Splinting/Casting Injury #1: Side: right Upper Extremity Injury Location: shoulder and elbow Upper Extremity Immobilizer: sling/shoulder immobilizer Post splinting neuro exam: intact Post splinting vascular exam: intact Placed by: Nursing Course Orders Ordered: ED Orders 05/15/23 14:42 XR forearm RT 2V Stat XR shoulder RT min 2V Stat XR toe RT min 2V Stat Vital Signs Vital signs: Vital Signs - 8 hr 05/15/23 18:46 Pulse Rate 77 Respiratory Rate 18 Blood Pressure 160/71 H Pulse Oximetry 97 Oxygen Delivery Method Room Air MDM - Fall MDM Narrative Medical decision making narrative: [58] year old patient presents with minor injuries from fall Multiple etiologies for patient's symptoms considered including, but not limited to: [Shoulder fracture versus dislocation versus elbow fracture versus dislocation this is toe fracture versus other] Prior Charts reviewed in our EMR Primary Historian: patient Imaging reviewed: Right shoulder and forearm without evidence of fracture or dislocation, right great toe with fracture Patient's symptoms improved over duration of stay with above-stated therapies. Findings and discharge diagnosis discussed with patient/family followed by verbalization of understanding Return precautions discussed with patient/family whom verbalize understanding of diagnosis and plan Discharge Plan Departure Patient Disposition: Home Clinical Impression: Fracture of great toe, Contusion of forearm Instructions: How to Prevent Falls Activity Restrictions/Additional Instructions: *You have been diagnosed with [fall with minor injuries including a small nondisplaced fracture of your right great toe. As we discussed other images are unremarkable and there are no other signs of fracture or dislocation] *What to do: *Please continue to take your regular medications as directed. *Please follow up with your primary care provider in 2-3 days, call for an appointment. Let them know you were seen in the Emergency Department and that we ask that you be seen in follow up. We will electronically transmit a record of today's note if your PCP is in our system *If you do not have a primary care provider please contact the [facility] Resource line at [phone]. They will ask some questions about your medical history and help get you set up with a doctor in the community. *Return to Emergency Department if you should have any new, worsening or concerning symptoms, such as [fever greater than 101 F, shaking chills, worsening pain, persistent vomiting or other bothersome symptoms] Prescriptions: No Action hydrocodone-acetaminophen 5 MG/325 MG tablet 1 tab PO Q6HP PRNQty: 20 0RF ibuprofen 800 mg tablet 800 mg PO TIDP PRN (Reason: pain) Qty: 90 0RF gabapentin [Neurontin] 300 mg capsule 300 mg PO HS Qty: 30 0RF (DME) blood-glucose meter [Blood Glucose Monitoring] Kit See Rx Instructions .ROUTE .MEDSUPPLY Qty: 1 0RF Rx Instructions: As directed (DME) Blood Glucose Test Strip See Rx Instructions .ROUTE .MEDSUPPLY Qty: 100 0RF Rx Instructions: Once daily testing (DME) lancets [Glucocom Lancets] 33 gauge misc See Rx Instructions .ROUTE .MEDSUPPLY Qty: 100 0RF Rx Instructions: Once daily glucose check ondansetron 4 mg tablet,disintegrating 4 mg PO TID-QID PRN (Reason: nausea and vomiting) Qty: 10 0RF metoclopramide HCl 10 mg tablet 10 mg PO Q6H PRN (Reason: nausea and vomiting) Qty: 20 0RF pantoprazole [Protonix] 40 mg tablet,delayed release (DR/EC) 40 mg PO DAILY Qty: 30 0RF Referrals: Bela Pizarro MD [Primary Care Provider] - Stand Alone Forms: Patient Portal/API
[2023-05-15 18:46] VITALS: BP 160/71; PULSE 77; RESP 18; O2SAT 97
== END 2023-05-15 18:46 | disposition home or self-care (01) ==
PROVIDERS: Emergency Provider Emergency Medicine; PCP Internal Medicine
DX: S92.404A Nondisplaced unspecified fracture of right great toe, initial encounter for closed fracture (principal); S50.11XA Contusion of right forearm, initial encounter; W10.9XXA Fall (on) (from) unspecified stairs and steps, initial encounter
CPT/HCPCS: 73030; 73090; 73660; 99281; 99283

== ENCOUNTER → 2023-06-26 13:17 | Outpatient (CLI) | payer OTHER, MEDICAID, SELFPAY ==
--- NOTE | 2023-06-26 | DI.MRI.S_ITS ---
PROCEDURE: MR CERVICAL SPINE WO CON INDICATIONS: Radiculopathy, cervical region TECHNIQUE: Noncontrast sagittal T1 spin echo and T2 fast spin echo, sagittal STIR, foraminal oblique sagittal T2 fast spin echo, and axial gradient echo or T2 fast spin echo through the cervical spine. COMPARISON: [facility], MR, C-SPINE WITHOUT CONTRAST, 04/27/2017, 7:24. [facility], MR, MR CERVICAL SPINE WO CON, 12/20/2019, 9:47. [facility], CR, XR CERVICAL SPINE 2 OR 3 VIEWS, 06/04/2023, 11:10. FINDINGS: Image quality: Excellent. Alignment and Curvature: There is normal bony alignment. Bone Marrow: Marrow demonstrates normal overall signal. Spinal Cord: Visualized spinal cord has normal size and signal. No cerebellar tonsillar herniation. Paraspinous Soft Tissues: No paravertebral masses. Prevertebral soft tissues are normal in thickness. C2-C3: The disc height is well-preserved. Loss of disc signal is seen at this level. A mild degree of generalized disc osteophyte complex is seen. There is a mild central disc osteophyte protrusion. Mild facet joint hypertrophy is seen. No significant neural foraminal narrowing is seen. Mac VIII central there is mild progression compared to 2020. C3-C4: The disc height is well-preserved. Loss of disc signal is seen at this level. Mild to moderate disc osteophyte complex is seen. There is a mild central disc osteophyte protrusion There is moderate right-sided and cxhq-le-izcdsaux left-sided facet hypertrophy. There is at least moderate right-sided and ovly-bv-notchswq left-sided neural foraminal narrowing. Mild to moderate central canal narrowing is seen. There is associated mass effect upon the ventral spinal cord. These imaging findings have progressed compared to the prior study. C4-C5: The disc height is well-preserved. Loss of disc signal is seen at this level. Mild to moderate disc osteophyte complex is seen, with a central disc osteophyte protrusion. Mild to moderate facet hypertrophy is seen. There is moderate bilateral neural foraminal narrowing seen, right worse than left. Moderate central canal narrowing is seen. There is associated mass effect upon the ventral spinal cord. These imaging findings have progressed compared to the prior study. C5-C6: The disc height is well-preserved. Loss of disc signal is seen at this level. Mild to moderate disc osteophyte complex is seen, which is eccentric to the right. There is a central/right disc osteophyte protrusion, as on series 4, image 25. Mild to moderate facet hypertrophy is seen. There is moderate right-sided and [id number]-xtytfhvf left-sided neural foraminal narrowing. Moderate central canal narrowing is seen. There is associated mass effect upon the ventral spinal cord. When comparison is made with the prior images, these findings are similar. C6-C7: The disc height is well-preserved. Loss of disc signal is seen at this level. Mild to moderate disc osteophyte complex is seen, with a central disc osteophyte protrusion. There is moderate right-sided and ofzb-os-ygulqodo left-sided facet hypertrophy. Moderate bilateral neural foraminal narrowing is seen. Moderate central canal narrowing is seen. There is associated mass effect upon the ventral spinal cord. These degenerative changes are slightly progressed compared to 2020. C7-T1: No significant abnormality is seen. IMPRESSION: Multiple levels of cervical spine degenerative change are seen, which have progressed at several levels compared to 2020. Dictated by: Terry Leong M.D. on 06/26/2023 at 16:50 Approved by: Terry Leong M.D. on 06/26/2023 at 16:55
== END ==
PROVIDERS: PCP Internal Medicine; Referring Provider Physical Medicine & Rehabilitation; Visit Provider Physical Medicine & Rehabilitation
DX: M47.22 Other spondylosis with radiculopathy, cervical region (principal)
CPT/HCPCS: 72141

== ENCOUNTER → 2024-03-11 11:24 | Outpatient (CLI) | payer MEDICARE, MEDICAID, SELFPAY ==
--- NOTE | 2024-03-11 11:26 | DI.MG.S_ITS ---
BILATERAL DIGITAL SCREENING MAMMOGRAM 3D/2D WITH CAD: 03/11/2024 CLINICAL: Routine screening. Comparison is made to exams dated: 03/06/2023 mammogram, 01/14/2021 mammogram, and 03/26/2018 mammogram - [facility]. There are scattered areas of fibroglandular density in both breasts (category b / 25%-50% glandular tissue). Current study was also evaluated with a Computer Aided Detection (CAD) system. No significant masses, calcifications, or other findings are seen in either breast. There has been no significant interval change. IMPRESSION: NEGATIVE There is no mammographic evidence of malignancy. A 1 year screening mammogram is recommended. Based on the Tyrer Cuzick model (a risk assessment model) the patient's lifetime risk is 6.8% and her 10 year risk is 2.5%. According to the ACR, ACS, and NCCN guidelines, an annual breast MRI exam along with mammogram is recommended if the patient's lifetime risk is 20% or greater. This exam was interpreted at Station ID: [id number]. NOTE: For mammograms, a report in lay terms will be sent to the patient. Approximately 15% of breast malignancies will not be visualized mammographically. In the management of a palpable breast mass, a negative mammogram must not discourage biopsy of a clinically suspicious lesion. Electronically Signed By: Ronnell piedra/twan:03/11/2024 15:56:55 copy to: Mickie Babin letter sent: Normal Exam ACR BI-RADS Category 1: Negative [id number]
== END ==
PROVIDERS: PCP Internal Medicine; Referring Provider Internal Medicine; Visit Provider Internal Medicine
DX: Z12.31 Encounter for screening mammogram for malignant neoplasm of breast (principal); R92.323 Mammographic fibroglandular density, bilateral breasts
CPT/HCPCS: 77063; 77067

== ENCOUNTER → 2025-03-23 12:26 | Outpatient (CLI) | payer MEDICAID, SELFPAY ==
--- NOTE | 2025-03-23 12:28 | DI.MG.S_ITS ---
MM screening mammo BI: 03/23/2025. BI-RADS: 1 CLINICAL: 60-year old female for bilateral screening mammogram. Tyrer-Cuzick lifetime risk of 5.0%. No personal or first-degree family history of breast cancer. PRIOR EXAMS 03/11/2024, 03/06/2023, 01/14/2021, 03/26/2018, 12/01/2016. MAMMOGRAPHY TECHNIQUE: 2D and 3D (tomosynthesis) digital mammographic views obtained, with additional images as needed for full coverage. Current study was also evaluated with a Computer Aided Detection (CAD) system. DENSITY B. There are scattered areas of fibroglandular density. MAMMOGRAPHY FINDINGS Bilateral: No suspicious mass, asymmetry, microcalcification, or other abnormality seen. IMPRESSION: * No evidence of malignancy. RECOMMENDATIONS Bilateral * Annual screening mammography. OVERALL ASSESSMENT CATEGORY BI-RADS-1: Negative. The [employer] recommends annual screening mammography beginning at age 40 for women with average risk of breast cancer. ELECTRONICALLY SIGNED: Alberto Clarke M.D. on 03/23/2025 at 03:50:50 PM PT Interpreting Station ID: [id number]
== END ==
PROVIDERS: PCP Family Medicine; Referring Provider Family Medicine; Visit Provider Family Medicine
DX: Z12.31 Encounter for screening mammogram for malignant neoplasm of breast (principal)
CPT/HCPCS: 77063; 77067